=== PATIENT | male | born 1985 | race Caucasian/White ===

== ENCOUNTER 2023-01-18 10:24 | Emergency (ER) | payer OTHER, SELFPAY ==
[2023-01-18 10:43] VITALS: BP 152/94; PULSE 85; RESP 18; TEMP 36.8; O2SAT 99
--- NOTE | 2023-01-18 10:56 | XR_ITS ---
The [address] [address] Patient Name: JOEL FALCON MRN: [id number] date: 1985 Sex: M Assigned Patient Location: ER Current Patient Location: ER Accession/Order Number: [id number] Exam Date: 01/18/2023 11:33 Report Date: 01/18/2023 12:18 At the request of: VAIBHAV CALERO Procedure: XR chest 2V EXAMINATION: XR chest 2V, 01/18/2023 11:33 AM EDT HISTORY: COUGH COMPARISON: 05/08/2019 TECHNIQUE: PA and lateral views of the chest were obtained. FINDINGS: Medical devices: None. Cardiomediastinal silhouette is within normal limits. The lungs are clear. No pleural effusion or pneumothorax. No acute bony or soft tissue abnormalities. XR/XR chest 2V IMPRESSION: 1. No acute cardiopulmonary abnormality. Electronically authenticated by: ADAL GARCIA Date: 01/18/2023 12:18
[2023-01-18 11:32] LABS: Internal Control Within Normal Limits; Strep A Antigen Screen Negative
[2023-01-18 11:39] LABS: SARS-CoV-2 Ag NEGATIVE (NEGATIVE)
[2023-01-18 16:19] LABS: SARS-CoV-2 NAA INVALID (NOT DETECTE)
== END 2023-01-18 12:45 | disposition left against medical advice (07) ==
PROVIDERS: Emergency Provider Emergency Medicine
DX: R06.02 Shortness of breath (principal); Z20.822 Contact with and (suspected) exposure to COVID-19
CPT/HCPCS: 71046; 87070; 87635; 87811; 87880; 99281; U0003